=== PATIENT | female | born 1975 | race Caucasian/White ===

== ENCOUNTER 2021-07-13 13:31 | Emergency (ER) | payer OTHER, MEDICAID, SELFPAY ==
--- NOTE | ~2021-07-13 | XR_ITS ---
EXAMINATION: XR SHOULDER, RIGHT CLINICAL INFORMATION: Shoulder pain COMPARISON: None TECHNIQUE: AP external rotation, Grashey, scapular Y, and axillary views of the right shoulder. FINDINGS: The bones and soft tissues are unremarkable. No fracture. Glenohumeral and acromioclavicular alignment is anatomic with normal joint space aside from a subchondral cyst in the distal clavicle. No abnormal soft tissue calcifications. XR/XR shoulder RT min 2V IMPRESSION: No acute finding to account for the patient's right shoulder pain. Some minimal degenerative change present at the right AC joint with a subchondral cyst in the clavicle.
[2021-07-13 14:27] VITALS: BP 139/84; PULSE 75; RESP 16; TEMP 35.5; O2SAT 99; BMI 36.7
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
[2021-07-13] MEDS: Acetaminophen 325 MG TABLET 650 MG PO (16:17)
== END 2021-07-13 16:27 | disposition home or self-care (01) ==
PROVIDERS: Emergency Provider Emergency Medicine
DX: S13.4XXA Sprain of ligaments of cervical spine, initial encounter (principal); G44.309 Post-traumatic headache, unspecified, not intractable; M25.511 Pain in right shoulder; M25.531 Pain in right wrist; V43.52XA Car driver injured in collision with other type car in traffic accident, initial encounter; Y93.9 Activity, unspecified; Y92.410 Unspecified street and highway as the place of occurrence of the external cause; Y99.9 Unspecified external cause status; Z79.899 Other long term (current) drug therapy
CPT/HCPCS: 73030; 99284